=== PATIENT | female | born 1980 | race Caucasian/White ===

== ENCOUNTER → 2016-12-28 | Outpatient (REF) | LOC: M LAB 09:25 | PROVIDERS: ATTEND Nurse Practitioner Adult Health | DX: Z02.9 Encounter for administrative examinations, unspecified (principal) ==

== ENCOUNTER 2017-02-27 14:00 | Emergency (ER) | payer OTHER ==
[~2017-02-27] VITALS: Ht 170.2 cm; Wt 75.1 kg
[2017-02-27] MEDS ORDERED: LIDOCAINE 1% MDV 20ML VIAL SC ONE (15:15)
[2017-02-27] MEDS ORDERED: LIDOCAINE 1% SDV INJ 30 ML VIAL SC SCH (15:15)
[2017-02-27 16:08] VITALS: BP 111/66
== END 2017-02-27 16:21 | disposition home or self-care (01) ==
LOC: M ED 14:00
DX: S61.211A Laceration without foreign body of left index finger without damage to nail, initial encounter (principal); S61.213A Laceration without foreign body of left middle finger without damage to nail, initial encounter; W26.0XXA Contact with knife, initial encounter; Y92.099 Unspecified place in other non-institutional residence as the place of occurrence of the external cause; Y93.89 Activity, other specified; Y99.9 Unspecified external cause status

== ENCOUNTER → 2017-07-22 | Outpatient (CLI) | payer OTHER | LOC: M RAD 09:05 | DX: N64.4 Mastodynia (principal); N60.02 Solitary cyst of left breast; N60.11 Diffuse cystic mastopathy of right breast | CPT/HCPCS: 77066 ==

== ENCOUNTER 2018-02-28 07:29 | Day surgery (SDC) | payer OTHER ==
[~2018-02-28 07:29] MED LIST: LR 1,000 ML IV
[2018-02-28] MEDS ORDERED: dexameTHASONE 4 MG/ML 1ML VIAL (J1100) As Ordered (08:05)
[2018-02-28] MEDS ORDERED: LIDOCAINE 2% INJ 100 MG/5 ML SDV (FOR ANES.) As Ordered (08:05)
[2018-02-28] MEDS ORDERED: ROCURONIUM BROMIDE 50 MG/5 ML VIAL As Ordered ×2 (08:05→10:38)
[2018-02-28] MEDS ORDERED: PROPOFOL 200 MG/20 ML VIAL As Ordered (08:05)
[2018-02-28] MEDS ORDERED: ONDANSETRON 4MG/2ML VIAL (J2405) As Ordered (08:05)
[2018-02-28] MEDS ORDERED: MIDAZOLAM INJ 2 MG/2 ML VIAL (J2250) As Ordered (08:07)
[2018-02-28] MEDS ORDERED: fentaNYL 250 MCG/5 ML INJECTION (J3010) As Ordered (08:07)
[2018-02-28] MEDS ORDERED: REMIFENTANIL 1MG 3ML VIAL As Ordered ×2 (08:21)
[2018-02-28] MEDS ORDERED: SCOPOLAMINE 1MG TRANSDERMAL PATCH As Ordered (09:18)
[2018-02-28] MEDS ORDERED: ceFAZolin 1GM INJ (J0690 PER 500MG) As Ordered (09:30)
[2018-02-28] MEDS: SCOPOLAMINE 1MG TRANSDERMAL PATCH TOP (09:45)
[2018-02-28] MEDS ORDERED: METOCLOPRAMIDE INJ 10MG/2ML VIAL (J2765) As Ordered (09:57)
[2018-02-28] MEDS: ceFAZolin SOD 1 GM in D5W MINI-BAG PLUS 50 ML IV ×3 (10:05→23:25)
[2018-02-28] MEDS ORDERED: ePHEDrine SULFATE 25 MG/5 ML(5MG/ML) SYRINGE As Ordered (10:31)
[2018-02-28] MEDS ORDERED: KETOROLAC 60 MG/2 ML VIAL (J1885) As Ordered (10:44)
[2018-02-28] MEDS ORDERED: GLYCOPYRROLATE INJ 0.2 MG/ML 2 ML VIAL As Ordered (10:44)
[2018-02-28] MEDS ORDERED: NEOSTIGMINE 10 MG/10 ML VIAL (J2710) As Ordered (10:44)
[2018-02-28] MEDS ORDERED: PHENYLephrine HCL 500 MCG/5 ML (100MCG/ML) SYRINGE (J2370) As Ordered (10:57)
[2018-02-28] MEDS: BACITRACIN PWD 50,000 UNITS VIAL As Ordered (11:30)
[2018-02-28] MEDS ORDERED: HYDROmorphone HCL 2 MG/ML 1ML VIAL (J1170) As Ordered (12:06)
[2018-02-28] MEDS: LR 1,000 ML IV ×2 (13:26→15:56)
[2018-02-28] MEDS: fentaNYL 100 MCG/2 ML INJECTION (J3010) IV ×2 (13:37→13:45)
[2018-02-28] MEDS: PERCOCET 5MG/325MG TAB PO ×2 (13:37→23:26)
[2018-02-28] MEDS ORDERED: PERCOCET 5MG/325MG TAB As Ordered (13:48)
[2018-02-28] MEDS ORDERED: fentaNYL 100 MCG/2 ML INJECTION (J3010) As Ordered (13:48)
[2018-02-28] MEDS ORDERED: ONDANSETRON 4MG/2ML VIAL (J2405) IV ×2 (14:00→14:45)
[2018-02-28] MEDS ORDERED: MORPHINE 4 MG/ML 1ML VIAL/SYRINGE (J2270) IV (14:45)
[2018-03-01] MEDS: LR 1,000 ML IV (03:50)
[2018-03-01] MEDS: PERCOCET 5MG/325MG TAB PO (09:36)
== END 2018-03-01 10:35 | disposition home or self-care (01) ==
LOC: M SDC 07:29 → M MS5PR 14:35
DX: N62 Hypertrophy of breast (principal); G43.909 Migraine, unspecified, not intractable, without status migrainosus; Z98.51 Tubal ligation status; Z87.891 Personal history of nicotine dependence
CPT/HCPCS: 19318